=== PATIENT | male | born 1960 | race American Indian/Alaskan Native ===

== ENCOUNTER 2017-01-25 03:31 | Emergency (ER) | payer MEDICARE, OTHER ==
[2017-01-25 04:26] LABS: Basophils % (Auto) 0.5 % (0.0-1.8); Eosinophils % (Auto) 4.6 % (0.0-4.3); Hematocrit 42.9 % (35.5-45.6); Hemoglobin 14.5 gm/dl (11.8-15.2); Mean Corpuscular HGB Conc 34 % (32-34); Mean Corpuscular Hemoglobin 28 pg (28-32); Mean Corpuscular Volume 83 fl (84-94); Platelet Count 177 K/mm3 (140-440); Red Blood Count 5.18 M/mm3 (3.65-5.03); Red Cell Distribution Width 14.4 % (13.2-15.2); White Blood Count 7.7 K/mm3 (4.5-11.0)
[2017-01-25 04:51] LABS: Alanine Aminotransferase 44 units/L (7-56); Albumin 4.4 g/dL (3.9-5); Albumin/Globulin Ratio 1.3 %; Alkaline Phosphatase 69 units/L (35-129); Anion Gap 20 mmol/L; BUN/Creatinine Ratio 13.63; Blood Urea Nitrogen 15 mg/dL (9-20); Calcium 8.9 mg/dL (8.4-10.2); Carbon Dioxide 22 mmol/L (22-30); Chloride 101.5 mmol/L (98-107); Glucose 111 mg/dL (75-100); Lipase 28 units/L (13-60); Potassium 3.4 mmol/L (3.6-5.0); Sodium 140 mmol/L (137-145); Total Protein 7.8 g/dL (6.3-8.2)
[2017-01-25 05:04] LABS: Bilirubin,Urine NEG (Negative); Blood,Urine NEG (Negative); Ketones,Urine NEG (Negative); Leukocyte Esterase,Urine NEG (Negative); Mucus,Urine 2+ /HPF; Nitrite,Urine NEG (Negative)
--- NOTE | 2017-01-25 10:19 | Emergency Department Report ---
ED Abdominal Pain HPI - General Chief Complaint: Abdominal Pain Stated Complaint: URQ ABD PAIN Time Seen by Provider: 01/25/17 10:12 Source: patient Mode of arrival: Ambulatory Limitations: No Limitations - History of Present Illness Initial Comments: 56 years old male coming in with right upper quadrant pain and tenderness over the last 3 days. He denied any nausea or vomiting no diarrhea no fever no chest pain no shortness of breath no other complaints. MD Complaint: abdominal pain -: Gradual, days(s) (3 Days) Location: RUQ Radiation: none Severity: moderate Severity scale (0 -10): 4 Quality: aching Worsens With: movement - Related Data Home Medications Medication Instructions Recorded Confirmed Last Taken Carvedilol [Coreg] 25 mg PO BID 01/30/13 01/25/17 01/24/17 Cholecalciferol (Vitamin D3) 2,000 unit PO DAILY 01/30/13 01/25/17 01/24/17 [Vitamin D3] Furosemide [Lasix TAB] 40 mg PO QDAY 01/30/13 01/25/17 01/24/17 Lisinopril [Zestril TAB] 40 mg PO QDAY 01/30/13 01/25/17 01/24/17 Potassium Chloride 10 meq PO QDAY 01/30/13 01/25/17 01/24/17 Aspirin 81 mg PO DAILY 01/25/17 01/25/17 01/24/17 Mometasone Furoate [Nasonex] 2 spray NS QDAY 01/25/17 01/25/17 Unknown Lee-3/Dha/Epa/Fish Oil [Fish Oil 1 each PO DAILY 01/25/17 01/25/17 01/24/17 EC 1,200 mg Softgel] Rosuvastatin (Nf) [Crestor] 1 tab PO DAILY 01/25/17 01/25/17 01/24/17 amLODIPine [Norvasc] 5 mg PO DAILY 01/25/17 01/25/17 01/24/17 Previous Rx's Medication Instructions Recorded Last Taken Type Ondansetron [Zofran Odt] 4 mg PO Q8HR PRN #14 tab.rapdis 01/25/17 Unknown Rx traMADol [Ultram 50 MG tab] 50 mg PO Q4HR PRN #14 tablet 01/25/17 Unknown Rx Allergies Allergy/AdvReac Type Severity Reaction Status Date / Time No Known Allergies Allergy Verified 04/11/13 09:30 ED Review of Systems ROS: Stated complaint: URQ ABD PAIN Other details as noted in HPI Comment: All other systems reviewed and negative Constitutional: denies: chills, fever Respiratory: denies: cough, shortness of breath Cardiovascular: denies: chest pain Gastrointestinal: abdominal pain. denies: nausea, vomiting, diarrhea, constipation, hematemesis, melena, hematochezia Genitourinary: denies: urgency, dysuria, frequency Neurological: denies: headache, weakness, numbness ED Past Medical Hx - Past Medical History Previous Medical History?: Yes Hx Hypertension: Yes (2002) Hx Heart Attack/AMI: (Chronic CHF) Hx Congestive Heart Failure: Yes Hx GERD: Yes Hx Arthritis: Yes Additional medical history: obeisity. sleep apnea - Surgical History Past Surgical History?: Yes Hx Internal Defibrillator: Yes - Social History Smoking Status: Never Smoker Substance Use Type: None - Medications Home Medications: Home Medications Medication Instructions Recorded Confirmed Last Taken Type Carvedilol [Coreg] 25 mg PO BID 01/30/13 01/25/17 01/24/17 History Cholecalciferol (Vitamin D3) 2,000 unit PO DAILY 01/30/13 01/25/17 01/24/17 History [Vitamin D3] Furosemide [Lasix TAB] 40 mg PO QDAY 01/30/13 01/25/17 01/24/17 History Lisinopril [Zestril TAB] 40 mg PO QDAY 01/30/13 01/25/17 01/24/17 History Potassium Chloride 10 meq PO QDAY 01/30/13 01/25/17 01/24/17 History Aspirin 81 mg PO DAILY 01/25/17 01/25/17 01/24/17 History Mometasone Furoate [Nasonex] 2 spray NS QDAY 01/25/17 01/25/17 Unknown History Lee-3/Dha/Epa/Fish Oil [Fish Oil 1 each PO DAILY 01/25/17 01/25/17 01/24/17 History EC 1,200 mg Softgel] Ondansetron [Zofran Odt] 4 mg PO Q8HR PRN #14 tab.rapdis 01/25/17 Unknown Rx Rosuvastatin (Nf) [Crestor] 1 tab PO DAILY 01/25/17 01/25/17 01/24/17 History amLODIPine [Norvasc] 5 mg PO DAILY 01/25/17 01/25/17 01/24/17 History traMADol [Ultram 50 MG tab] 50 mg PO Q4HR PRN #14 tablet 01/25/17 Unknown Rx ED Physical Exam - General Limitations: No Limitations ED Course Vital Signs 01/25/17 01/25/17 01/25/17 03:37 09:10 09:16 Temperature 97.5 F L Pulse Rate 71 65 Respiratory 16 15 12 Rate Blood Pressure 154/88 146/87 Blood Pressure [Right] O2 Sat by Pulse 100 100 Oximetry 01/25/17 01/25/17 01/25/17 09:30 09:32 09:46 Temperature 97.6 F Pulse Rate 62 71 Respiratory 16 18 14 Rate Blood Pressure 146/87 146/87 Blood Pressure 146/87 [Right] O2 Sat by Pulse 100 100 98 Oximetry 01/25/17 01/25/17 01/25/17 10:00 10:16 10:30 Temperature Pulse Rate 63 69 63 Respiratory 19 12 12 Rate Blood Pressure 134/92 134/92 134/92 Blood Pressure [Right] O2 Sat by Pulse 97 99 95 Oximetry 01/25/17 01/25/17 01/25/17 11:08 11:16 11:30 Temperature Pulse Rate 66 68 68 Respiratory 12 13 13 Rate Blood Pressure 134/92 143/90 143/90 Blood Pressure [Right] O2 Sat by Pulse 99 97 Oximetry 01/25/17 01/25/17 01/25/17 11:46 12:00 12:57 Temperature 97.7 F Pulse Rate 66 67 66 Respiratory 15 11 L 18 Rate Blood Pressure 134/92 134/92 Blood Pressure 149/89 [Right] O2 Sat by Pulse 95 100 97 Oximetry ED Medical Decision Making - Lab Data Result diagrams: 01/25/17 04:01 01/25/17 04:01 - Radiology Data Radiology results: report reviewed Patient gallbladder ultrasound came back was no significant acute abnormality, CT abdomen and pelvis with IV contrast unremarkable. Patient blood work also came back within normal limits. I advised patient to follow-up with his primary care physician for further workup as an outpatient. Critical care attestation.: If time is entered above; I have spent that time in minutes in the direct care of this critically ill patient, excluding procedure time. ED Disposition Clinical Impression: Abdominal pain Disposition: DC- TO HOME OR SELFCARE Is pt being admited?: No Condition: Stable Instructions: Abdominal Pain (ED) Prescriptions: Ondansetron [Zofran Odt] 4 mg PO Q8HR PRN #14 tab.rapdis PRN Reason: Nausea And Vomiting traMADol [Ultram 50 MG tab] 50 mg PO Q4HR PRN #14 tablet PRN Reason: Pain Referrals: SUMAYA THAKKAR MD [Primary Care Provider] - 3-5 Days
--- NOTE | 2017-01-25 11:27 | Ultrasound Report ---
RIGHT UPPER QUADRANT ULTRASOUND: HISTORY: Right upper quadrant pain and tenderness. Technique: Transabdominal ultrasound imaging with Doppler interrogation. FINDINGS: The liver parenchyma is echogenic and attenuates the ultrasound beam consistent with diffuse fatty infiltration. No focal liver mass or surface nodularity is identified. The gallbladder is sonolucent with no evidence of stones, polyps or wall thickening. The common duct measures 5.9 mm. Images of the pancreas, right kidney and aorta are within normal limits. No perihepatic ascites. IMPRESSION: Fatty infiltration of the liver.
[2017-01-25] MEDS ORDERED: NACL ONE (11:57)
--- NOTE | 2017-01-25 13:14 | Cat Scan Report ---
CT of the abdomen and pelvis with IV contrast. History: Abdominal pain. Findings: The liver, spleen, pancreas, and kidneys are normal. The gallbladder is unremarkable. No adrenal abnormalities are seen. There is no adenopathy within the retroperitoneum. There is no rib fracture or evidence of appendicitis. No pelvic masses or abnormal fluid collections. Impression: Negative study.
[2017-01-25] MEDS ORDERED: ZOFRAN IV ONE (13:33)
[2017-01-25] MEDS ORDERED: MORPHINE IV ONE (13:33)
[2017-01-25 14:03] VITALS: BP 156/89
== END 2017-01-25 14:06 | disposition home or self-care (01) ==
LOC: ED 03:31
DX: R10.11 Right upper quadrant pain (principal); I10 Essential (primary) hypertension; I50.9 Heart failure, unspecified; M19.90 Unspecified osteoarthritis, unspecified site; K21.9 Gastro-esophageal reflux disease without esophagitis
CPT/HCPCS: 36415; 74177; 76705; 80053; 81001; 83690; 85025; 96374; 96375; 99284; J2270; J2405; Q9967